=== PATIENT | male | born 1990 | race Hispanic/Latino ===

== ENCOUNTER 2018-09-26 13:32 | Emergency (ER) | payer SELFPAY ==
[2018-09-26] MEDS ORDERED: NORCO 10/325 PO ONE (14:03)
[2018-09-26] MEDS ORDERED: BOOSTRIX IM ONE (14:03)
[2018-09-26] MEDS ORDERED: XYLOCAINE 1% 20 mL INFILTRATI ONE (14:03)
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
[2018-09-26 15:06] VITALS: BP 126/62
== END 2018-09-26 15:01 | disposition home or self-care (01) ==
LOC: ED 13:32
DX: S61.412A Laceration without foreign body of left hand, initial encounter (principal); F17.200 Nicotine dependence, unspecified, uncomplicated; W26.0XXA Contact with knife, initial encounter; Y93.89 Activity, other specified; Y92.89 Other specified places as the place of occurrence of the external cause; Y99.8 Other external cause status
CPT/HCPCS: 90471; 90715